=== PATIENT | female | born 1980 | race Caucasian/White ===

== ENCOUNTER 2017-05-05 09:43 | Emergency (ER) | payer OTHER, SELFPAY ==
[2017-05-05 10:15] VITALS: BP 121/81; PULSE 102; RESP 20; TEMP 36.9; O2SAT 99; BMI 26.1
--- NOTE | 2017-05-05 10:54 | HMH.EDUTC ---
[facility] – [place] Disposition Clinical Impression: Skin infection Disposition: Home, Self-Care Condition on Discharge: Good Instructions: Mupirocin Additional Instructions: If area does not improve follow up with family doctor Return if needed Keep area clean and dry and apply Bactroban Prescriptions: Mupirocin Calcium [Bactroban 2% Cream 15gm] 1 applicatio TP TID 10 Days #1 tube Referrals: Ruth Arambula MD [Primary Care Provider] - Forms: Work/School Release Time of Disposition: 11:15 Medical Decision Making - Medical Records Medical records reviewed: Yes: I reviewed the patient's medical records. Vital Signs: 05/05/17 10:15 Temperature 98.4 F Temperature Source Temporal Artery Scan Pulse Rate [Right Ulnar] 102 H Respiratory Rate 20 Blood Pressure [Right Arm] 121/81 Blood Pressure Mean [Right Arm] 94 Blood Pressure Source [Right Arm] Automatic Cuff Blood Pressure Position [Right Arm] Sitting 02 Sat by Pulse Oximetry 99 Oxygen Delivery Method Room Air - Dimitris Inquiry Pt receiving controlled substance: No Dimitris was queried for this patient: No [facility] [place] HPI - General Stated complaint: ring around left ear pain Mode of Arrival: Family Vehicle Source of Information: Patient Limitations: No Limitations Description of Symptoms (Recalled from Triage Doc. by RN): PT C/O LEFT EAR PAIN AND DRAINAGE SINCE LAST NIGHT. HEENT Symptoms (Recalled from RN notes): Yes (LEFT EAR PAIN AND DRAINAGE) Resp Symptoms (Recalled from RN notes): No Skin Symptoms (Recalled from RN notes): No MS Symptoms (Recalled from RN notes): No Functional Status (Recalled from RN notes): NA - History of Present Illness Provider Complaint: Patient state that she was having pain on the back of her left ear lobe State that a friend of hers looked and it was like a pimple and she sqeezed it and popped it State that now it is like raw and hurting worse State that she also isn't feeling well and wanted to get checked for the flu - Related Data Previous Rx's Medication Instructions Recorded Mupirocin Calcium [Bactroban 2% 1 applicatio TP TID 10 Days #1 tube 05/05/17 Cream 15gm] Allergies Allergy/AdvReac Type Severity Reaction Status Date / Time No Known Allergies Allergy Verified 05/05/17 10:04 - Worker's Comp Is this a Worker's Comp case?: No [facility] History I have reviewed the patient's past medical history: Yes - *Social History Smoking Status: Current every day smoker Tobacco Type: cigarettes Alcohol Intake: current Alcohol Intake Frequency:: 0-2 drinks per day - Psychiatric History Expresses thoughts of harming self/others: None Suicide Plan Description: No Plan ROS Obtained: Yes All systems reviewed & no additional complaints - Constitutional Constitutional: Reports body ache - ENT Ears, Nose, Mouth, and Throat: Reports otalgia Physical Exam - General General appearance: alert, in no apparent distress - Expanded ENT Exam External ear exam: Present: external tenderness, other (Observed blister like area on back of left ear lobe, no drainage no swelling mild redness patient advised when they sqeezed area puss like substance came from area) - Respiratory Respiratory exam: Present: normal lung sounds bilaterally. Absent: respiratory distress - Cardiovascular Cardiovascular exam: Present: tachycardia - Neurological Exam Neurological exam: Present: alert, oriented X3
--- NOTE | 2017-05-05 11:03 | ED_ITS ---
[facility] [place] Disposition Clinical Impression: Skin infection Disposition: Home, Self-Care Condition on Discharge: Good Instructions: Mupirocin Additional Instructions: If area does not improve follow up with family doctor Return if needed Keep area clean and dry and apply Bactroban Prescriptions: Mupirocin Calcium [Bactroban 2% Cream 15gm] 1 applicatio TP TID 10 Days #1 tube Referrals: Ruth Arambula MD [Primary Care Provider] - Forms: Work/School Release Time of Disposition: 11:15 Medical Decision Making - Medical Records Medical records reviewed: Yes: I reviewed the patient's medical records. Vital Signs: 05/05/17 10:15 Temperature 98.4 F Temperature Source Temporal Artery Scan Pulse Rate [Right Ulnar] 102 H Respiratory Rate 20 Blood Pressure [Right Arm] 121/81 Blood Pressure Mean [Right Arm] 94 Blood Pressure Source [Right Arm] Automatic Cuff Blood Pressure Position [Right Arm] Sitting 02 Sat by Pulse Oximetry 99 Oxygen Delivery Method Room Air - Dimitris Inquiry Pt receiving controlled substance: No Dimitris was queried for this patient: No [facility] [place] HPI - General Stated complaint: ring around left ear pain Mode of Arrival: Family Vehicle Source of Information: Patient Limitations: No Limitations Description of Symptoms (Recalled from Triage Doc. by RN): PT C/O LEFT EAR PAIN AND DRAINAGE SINCE LAST NIGHT. HEENT Symptoms (Recalled from RN notes): Yes (LEFT EAR PAIN AND DRAINAGE) Resp Symptoms (Recalled from RN notes): No Skin Symptoms (Recalled from RN notes): No MS Symptoms (Recalled from RN notes): No Functional Status (Recalled from RN notes): NA - History of Present Illness Provider Complaint: Patient state that she was having pain on the back of her left ear lobe State that a friend of hers looked and it was like a pimple and she sqeezed it and popped it State that now it is like raw and hurting worse State that she also isn't feeling well and wanted to get checked for the flu - Related Data Previous Rx's Medication Instructions Recorded Mupirocin Calcium [Bactroban 2% 1 applicatio TP TID 10 Days #1 tube 05/05/17 Cream 15gm] Allergies Allergy/AdvReac Type Severity Reaction Status Date / Time No Known Allergies Allergy Verified 05/05/17 10:04 - Worker's Comp Is this a Worker's Comp case?: No [facility] History I have reviewed the patient's past medical history: Yes - *Social History Smoking Status: Current every day smoker Tobacco Type: cigarettes Alcohol Intake: current Alcohol Intake Frequency:: 0-2 drinks per day - Psychiatric History Expresses thoughts of harming self/others: None Suicide Plan Description: No Plan ROS Obtained: Yes All systems reviewed & no additional complaints - Constitutional Constitutional: Reports body ache - ENT Ears, Nose, Mouth, and Throat: Reports otalgia Physical Exam - General General appearance: alert, in no apparent distress - Expanded ENT Exam External ear exam: Present: external tenderness, other (Observed blister like area on back of left ear lobe, no drainage no swelling mild redness patient advised when they sqeezed area puss like substance came from area) - Respiratory Respiratory exam: Present: normal lung sounds bilaterally. Absent: respiratory distress - Cardiovascular Cardiovascular exam: Present: tachyca
[2017-05-05 11:15] LABS: UTC Influenza A Antigen Negative (Negative); UTC Influenza B Antigen Negative (Negative)
== END 2017-05-05 11:19 | disposition home or self-care (01) ==
PROVIDERS: Emergency Provider Nurse Practitioner; Family Provider Emergency Medicine; PCP Family Medicine
DX: L08.9 Local infection of the skin and subcutaneous tissue, unspecified (principal); F17.210 Nicotine dependence, cigarettes, uncomplicated
CPT/HCPCS: 87804; 99201